=== PATIENT | male | born 1995 | race Caucasian/White ===

== ENCOUNTER 2017-09-03 13:19 | Emergency (ER) | payer BC ==
[~2017-09-03] VITALS: Ht 172.7 cm; Wt 74.6 kg
[2017-09-03 13:21] VITALS: TEMP 36.7; Ht 172.7 cm; Wt 74.6 kg
[2017-09-03] MEDS ORDERED: GELATIN SPONGE 12-7MM EXT ONE (13:45)
[2017-09-03] MEDS ORDERED: GELATIN SPONGE 12-7MM ONE (13:47)
[2017-09-03 14:13] VITALS: BP 132/71; PULSE 80; O2SAT 100
--- NOTE | 2017-09-03 14:33 | EMERGENCY ROOM VISIT NOTE ---
History First contact with patient: 13:35 Chief Complaint: LACERATION/CUT (SUT/DERMABOND) Stated Complaint: RIGHT HAND, TIP OF FINGER CUTD OFF Nursing Triage Summary: Pt was cutting meat and cut the tip of his middle finger of the right hand off. Wound is bleeding. Wound cleaned and pressure bandage applied. History of Present Illness The patient is a 21 year old male who presents to the Emergency Room with complaints of a right third fingertip avulsion. The patient was cutting oranges with a mandolin slicer approximately one hour ago when this happened. The patient does report a moderate amount of bleeding, but was able to stop the bleeding with direct pressure. The patient is [id number]. Tetanus immunization is up-to-date. The patient rates his discomfort a 6 out of 10. Review of Systems 6 system review was performed and was negative except for pertinent positives and negatives as indicated in history of present illness Past Medical/Surgical History Medical Problems: (1) No significant past medical history Surgical Problems: (1) No history of previous surgery (2) Status post myringotomy with insertion of tube Family History Unremarkable Social History Smoking Status: Never Smoker Alcohol Use: occasionally Marital Status: single Occupation Status: employed Current/Historical Medications No Active Prescriptions or Reported Meds Physical Exam Vital Signs Date Time Temp Pulse Resp B/P (MAP) Pulse Ox O2 Delivery O2 Flow Rate FiO2 09/03/17 14:13 80 18 132/71 100 09/03/17 13:21 36.7 95 18 144/96 98 Room Air Physical Exam CONSTITUTIONAL: Healthy and well nourished. Alert and oriented X 3 with positive affect. Patient appears in mild discomfort from pain. HEENT: Normocephalic, atraumatic. Pupils equal, round and reactive. NECK: Full active range of motion without discomfort. MUSCULOSKELETAL: Examination of the right third fingertip shows a clean avulsion laceration of the tip. It does not involve the nail. Diameter is approximately 1 cm. No active bleeding noted. The bony tuft is not exposed. INTEGUMENTARY: No rash or other significant dermatologic conditions noted. NEUROLOGIC: No focal neurologic deficits noted. Medical Decision & Procedures ED Course Patient history and physical exam were performed. Nurse's notes were reviewed. Vital signs were reviewed and were normal. A Gelfoam pressure dressing was applied. The patient was provided additional verbal and written wound care instructions. If the fingertip starts to recede, or if he has any significant wound concerns, he was instructed to follow-up with orthopedics for further reevaluation. Ibuprofen or Tylenol as needed for pain. The patient was happy with plan of care, voiced understanding of all discharge instructions, and denied any significant discomfort at the conclusion of my exam. Medical Decision Medication Reconcilliation Current Medication List: was personally reviewed by me Blood Pressure Screening Patient's blood pressure: Normal blood pressure Impression Primary Impression: Laceration of right middle finger w/o foreign body w/o damage ... Departure Information Dispostion Home / Self-Care Prescriptions No Active Prescriptions or Reported Meds Forms HOME CARE DOCUMENTATION FORM, IMPORTANT VISIT INFORMATION Patient Instructions My [facility] Additional Instructions Keep dressing in place for 48 hrs, then remove. Soak foam in water until it falls off easily, then clean wound daily, cover with an antibiotic ointment and keep covered until it heals. Return for any signs of infection (increasing redness, swelling, drainage). Ice and elevate for swelling and pain. Ibuprofen 800 mg and/or Tylenol 1000 mg every 8 hours. You may also alternate these medications for more effective pain relief: Ibuprofen --4 HRS--> Tylenol --4 HRS--> ibuprofen --4 HRS--> Tylenol .... Problem Qualifiers Primary Impression: Laceration of right middle finger w/o foreign body w/o damage ... Encounter type: initial encounter Qualified Codes: S61.212A - Laceration without foreign body of right middle finger without damage to nail, initial encounter
== END 2017-09-03 14:15 | disposition home or self-care (01) ==
LOC: C.EDB 13:21 → C.EDD 14:15
DX: S61.212A Laceration without foreign body of right middle finger without damage to nail, initial encounter (principal); W26.8XXA Contact with other sharp object(s), not elsewhere classified, initial encounter; Y92.89 Other specified places as the place of occurrence of the external cause

== ENCOUNTER 2017-12-05 01:39 | Emergency (ER) | payer BC, OTHER ==
[~2017-12-05] VITALS: Ht 172.7 cm; Wt 75.8 kg
[2017-12-05 01:44] VITALS: TEMP 36.5; Ht 172.7 cm; Wt 75.8 kg
--- NOTE | 2017-12-05 02:14 | EMERGENCY ROOM VISIT NOTE ---
History Report prepared by Madeline: Prem Polanco Under the Supervision of: Dr. Marifer Willoughby M.D. First contact with patient: 01:52 Chief Complaint: ELBOW PAIN/INJURY Stated Complaint: LEFT ELBOW HURTS History of Present Illness The patient is a 22 year old male who presents to the Emergency Room with complaints of pain and bleeding in his left elbow that began shortly prior to arrival after falling. The patient admits that "he was drinking a little this evening" when he slipped and fell. He fell directly onto a piece of broken glass with his left elbow and suffered a laceration. He did fall onto a "dirty fraternity house" basement floor, although the glass was broken earlier this evening. He did not lose consciousness from the fall, and he has no headache. His tetanus is up to date. Source of History: patient Onset: Shortly TITLE INVESTIGATOR Position: elbow (left) Quality: other (Fall/Laceration) Timing: other (Single falling episode) Associated Symptoms: No LOC, No headache Review of Systems See HPI for pertinent positives & negatives. A total of 10 systems reviewed and were otherwise negative. Past Medical & Surgical Medical Problems: (1) No significant past medical history Surgical Problems: (1) No history of previous surgery (2) Status post myringotomy with insertion of tube Family History Patient reports no known family medical history. Social History Smoking Status: Never Smoker Alcohol Use: occasionally Marital Status: single Occupation Status: employed Current/Historical Medications No Active Prescriptions or Reported Meds Allergies Coded Allergies: Penicillins (Verified Allergy, Unknown, HIVES, 12/05/17) Physical Exam Vital Signs Date Time Temp Pulse Resp B/P (MAP) Pulse Ox O2 Delivery O2 Flow Rate FiO2 12/05/17 03:05 75 18 155/78 99 Room Air 12/05/17 01:44 36.5 64 18 126/73 97 Room Air Physical Exam Vital signs reviewed. General: Well-appearing young male, in no significant distress. HEENT: No scleral icterus, PERRLA, neck supple. Atraumatic. Cardiovascular: Regular rate and rhythm, no extra sounds. Pulmonary: Clear to auscultation bilaterally, normal work of breathing. Abdomen: Soft, nontender, nondistended, positive bowel sounds. Musculoskeletal: Atraumatic, no peripheral edema. Nontender C-spine and T-spine , no step-off or deformity. There is a 2 cm laceration to the left distal humerus, just above the elbow. No joint involvement. Neurologic: Patient awake alert and oriented x 3, full strength in all 4 extremities. Cranial nerves 2 through 12 grossly intact. Skin: Warm, dry, no rash Medical Decision & Procedures ER Provider Diagnostic Interpretation: X-ray results as stated below per interpretation by me: Chest X-ray: No focal infiltrate, no pneumothorax, no rib fracture. Elbow X-ray: No fracture, foreign body, or dislocation. ED Course 0159: Past medical records reviewed. The patient was evaluated in room B2. A complete history and physical examination was performed. 0215: Ordered Lidocaine 20 mL INFIL 0319: Upon reevaluation, the patient was resting comfortably. I discussed findings with him. He verbalized agreement of the treatment plan. The patient was discharged home. Medical Decision Differential diagnosis: Etiologies such as fracture, dislocation, intra-abdominal, pneumothorax, intrathoracic , intracranial, neurologic, as well as other traumatic pathologies were entertained. neurologic,as well as others were deemed relatively unlikely. This patient was evaluated and appeared to be in no significant distress. Physical examination is significant only for a 2 cm laceration to the distal left forearm. X-ray was obtained and reveals no evidence of foreign body. Chest x-ray was performed due to the back pain and fall. The study is negative. Patient's tetanus status is up-to-date. He was advised of the findings. Wound was prepped and closed by Yessica Boland PA-C. Please see her notes for final details. Patient was given detailed wound care instructions and will return to the ER for worsening of symptoms or any medical concerns. Medication Reconcilliation Current Medication List: was personally reviewed by me Blood Pressure Screening Patient's blood pressure: Elevated blood pressure Blood pressure disposition: Elevated BP felt to be situational Impression Primary Impression: Laceration of upper arm Scribe Attestation The scribe's documentation has been prepared under my direction and personally reviewed by me in its entirety. I confirm that the note above accurately reflects all work, treatment, procedures, and medical decision making performed by me. Departure Information Dispostion Home / Self-Care Prescriptions No Active Prescriptions or Reported Meds Referrals No Doctor, Assigned (PCP) Forms HOME CARE DOCUMENTATION FORM, IMPORTANT VISIT INFORMATION Patient Instructions My [facility] Additional Instructions Please watch for signs of infection. If laceration becomes red, swollen or drains, please seek medical attention. Laceration care: Keep wound clean and dry. Do not allow any crusting or dried blood to accumulate on sutures. If this occurs, use a 1:1 solution of hydrogen peroxide/ water on a Q-tip to clean the wound. Use an antibiotic ointment for 3-4 days, then let wound dry. Suture removal in 10-12 days. Return sooner for any signs of infection (increasing redness, swelling, drainage). Ice and elevate for swelling and pain. Ibuprofen 600 mg and Tylenol 650 mg every 6 hrs for pain. Keep covered when in sun until sutures removed then SPF 50 or higher for one year. Vitamin E oil if desired two weeks after suture removal for reduction of scar. Return to the ED for worsening of symptoms or any medical concerns.
[2017-12-05] MEDS ORDERED: XYLOCAINE 1%/SOD BICARB 20 ML VIAL INFIL ONE (02:15)
--- NOTE | 2017-12-05 02:42 | EMERGENCY ROOM VISIT NOTE ---
ED Visit Note Location: right upper arm above the elbow Total length: 2cm Complexity: simple Verbal consent was obtained after the risks and benefits were explained, including but not limited to bleeding, scarring, infection, pain, and bone/joint /nerve damage. At this time, the risks of the procedure are less than the risks of NOT performing the procedure. A time out was taken and the correct patient and site identified. The skin was prepped with betadine. The target area was anesthetized with 2 ml of 1% lidocaine without epinephrine. Copious irrigation was performed using NSS. The skin was re-prepped with betadine and a sterile field set. The wound was explored for foreign bodies and none found. Examination revealed no injury to deep structures such as tendons, bone, or significant blood vessels. Debridement was not performed. The wound edges were approximated using 4, 4-0 simple interrupted nylon sutures. Hemostasis and excellent approximation was achieved. Antibacterial ointment and a sterile dressing applied. Detailed wound care instructions and signs and symptoms of infection reviewed with the pt. No complications and the patient tolerated the procedure well. Current/Historical Medications No Active Prescriptions or Reported Meds Allergies Coded Allergies: Penicillins (Verified Allergy, Unknown, HIVES, 12/05/17) Vital Signs Date Time Temp Pulse Resp B/P (MAP) Pulse Ox O2 Delivery O2 Flow Rate FiO2 12/05/17 01:44 36.5 64 18 126/73 97 Room Air Departure Information Prescriptions No Active Prescriptions or Reported Meds Referrals No Doctor, Assigned Patient Instructions My [facility]
[2017-12-05 03:05] VITALS: BP 155/78; PULSE 75; O2SAT 99
--- NOTE | 2017-12-05 07:14 | DIAGNOSTIC IMAGING REPORT ---
CHEST ONE VIEW PORTABLE CLINICAL HISTORY: fall CHEST PAIN COMPARISON STUDY: No previous studies for comparison. FINDINGS: The cardiac and mediastinal contours are normal. There is no evidence of focal pulmonary consolidation. There is no evidence of failure. No pleural effusions are visualized.[ No pneumothorax is visualized. IMPRESSION: No active disease in the chest. Electronically signed by: Connor Smith M.D. 12/05/2017 7:12 AM Dictated Date/Time: 12/05/2017 7:12 AM
--- NOTE | 2017-12-05 07:15 | DIAGNOSTIC IMAGING REPORT ---
L ELBOW MIN 3 VIEWS ROUTINE CLINICAL HISTORY: Left elbow pain status post trauma COMPARISON: None. DISCUSSION: The fat pads are not displaced. No fractures or dislocations are visualized. IMPRESSION: No fractures or dislocations identified. Electronically signed by: Connor Smith M.D. 12/05/2017 7:13 AM Dictated Date/Time: 12/05/2017 7:13 AM
== END 2017-12-05 03:28 | disposition home or self-care (01) ==
LOC: C.EDB 01:40
DX: S41.112A Laceration without foreign body of left upper arm, initial encounter (principal); W45.8XXA Other foreign body or object entering through skin, initial encounter; Y92.89 Other specified places as the place of occurrence of the external cause; Z88.0 Allergy status to penicillin

== ENCOUNTER 2017-12-05 19:28 | Emergency (ER) | payer OTHER ==
--- NOTE | 2017-12-06 00:29 | EMERGENCY ROOM VISIT NOTE ---
History First contact with patient: 23:44 Chief Complaint: HEADACHE Stated Complaint: CONCUSSION,DIZZY,HEADACHE History of Present Illness The patient is a 22 year old male who presents to the Emergency Room with complaints of headache symptoms worsening over the past several hours. The patient was seen and evaluated last night in this department following a fall. He states that at his initial presentation he was not having any discomfort in his head, and ultimately had a laceration repaired over his left elbow. This is evidently doing well and not currently bothering him. The patient denied head injury symptoms last night, but states that he is now having some discomfort. He is not taking anything [id number] for his symptoms. He does not take blood thinners. He rates his discomfort a 4/10 and is concerned about a concussion. Please note the patient was seen in part during an episode of [facility] downtime. Additional information may be scanned into the chart regarding this encounter. Review of Systems More than 10 systems were reviewed and otherwise negative with the exception of history of present illness. Past Medical/Surgical History Medical Problems: (1) No significant past medical history Surgical Problems: (1) No history of previous surgery (2) Status post myringotomy with insertion of tube Family History Patient reports no known family medical history. Social History Smoking Status: Never Smoker Alcohol Use: occasionally Marital Status: single Occupation Status: employed Current/Historical Medications No Active Prescriptions or Reported Meds Physical Exam Physical Exam VITALS: Vitals are noted on the nurse's note and reviewed by myself. Vital signs stable. GENERAL: Well-developed, well-nourished, white male, who is in no acute distress and resting comfortably. Patient is cooperative with the examination. GCS 15. HEAD: Superficial abrasion appreciated over the mid right side forehead. No castillo sign or raccoon eyes. EARS: External ear normal. External auditory canals clear, tympanic membranes pearly gonzalez without erythema or effusion bilaterally. EYES: Pupils equal round and reactive to light and accommodation. Conjunctivae without injection, sclerae without icterus. Extraocular movements intact. NOSE: Patent, turbinates without inflammation or discharge. MOUTH: Mucous membranes moist. Tonsils are not enlarged. Pharynx without erythema, blood, or exudate. Uvula midline. Airway patent. NECK: Supple without nuchal rigidity. No lymphadenopathy. No thyromegaly. Cervical spine is nontender. HEART: Regular rate and rhythm without murmurs gallops or rubs. LUNGS: Clear to auscultation bilaterally without wheezes, rales or rhonchi. No retractions or accessory muscle use. Medical Decision & Procedures ED Course Physical exam and history were performed. Nursing notes, EMR, and Medication List were personally reviewed. Patient appears to have injured his head last evening, and is now complaining of some dizziness. The patient's neurological exam is unremarkable and he otherwise appears well. I discussed options of care, and he did elect for a CT scan. CT scan was performed, and reviewed by radiology during downtime. A verbal report was called to me indicating no acute process with official report pending at the time of this dictation. Overall the patient appears well for discharge home. I suspect his symptoms are related to the head injury and possible mild concussion. He was given a note for school for tomorrow. He is to follow with his primary care physician for further care management. He is otherwise invited back to the ER with any new, worsening, or concerning symptoms. The chart was completed utilizing [employer] Speech Voice Recognition Software. Grammatical errors, random word insertions, pronoun errors, and incomplete sentences are an occasional consequence of this system due to software limitations, ambient noise, and hardware issues. Any formal questions or concerns about the content, text, or information contained within the body of this dictation should be directly addressed to the provider for clarification. . Medical Decision Differential diagnosis: Etiologies such as concussion, contusion, fracture, subdural hematoma, epidural hematoma, intraparenchymal hemorrhage, as well as other traumatic pathologies were entertained. Impression Primary Impression: Closed head injury Departure Information Dispostion Home / Self-Care Condition GOOD Prescriptions No Active Prescriptions or Reported Meds Referrals Rigoberto Glasgow M.D. (PCP) Forms HOME CARE DOCUMENTATION FORM, IMPORTANT VISIT INFORMATION Patient Instructions My [facility]
--- NOTE | 2017-12-06 07:40 | DIAGNOSTIC IMAGING REPORT ---
HEAD WITHOUT CONTRAST (CT) CT DOSE: HISTORY: Trauma. Mental status change. TRAUMA LAST NIGHT TECHNIQUE: Multiaxial CT images of the head were performed without the use of intravenous contrast. A dose lowering technique was utilized adhering to the principles of ALARA. Comparison: None. Findings: Minimal mucosal thickening of the sinuses. The calvarium and skull base are intact. The ventricles and sulci are within normal limits. There is no mass, hematoma, midline shift, or acute infarct. Impression: No acute intracranial abnormality. The above report was generated using voice recognition software. It may contain grammatical, syntax or spelling errors. Electronically signed by: Manjeet Rodrigez M.D. 12/06/2017 7:38 AM Dictated Date/Time: 12/06/2017 7:37 AM
== END 2017-12-05 21:30 | disposition home or self-care (01) ==
LOC: C.EDD 19:28
DX: S00.81XA Abrasion of other part of head, initial encounter (principal); W19.XXXD Unspecified fall, subsequent encounter; R40.2412 Glasgow coma scale score 13-15, at arrival to emergency department

== ENCOUNTER 2017-12-14 17:06 | Emergency (ER) | payer OTHER ==
[~2017-12-14] VITALS: Ht 172.7 cm; Wt 75.8 kg
[2017-12-14 17:27] VITALS: BP 144/90; PULSE 69; TEMP 36.7; O2SAT 97; Ht 172.7 cm; Wt 75.8 kg
--- NOTE | 2017-12-14 17:47 | EMERGENCY ROOM VISIT NOTE ---
ED Visit Note First contact with patient: 17:40 CHIEF COMPLAINT: Suture removal This patient returns to the ED today for removal of sutures that were placed 9 days ago. There has been no swelling, redness, or drainage from the wound. The patient feels like the laceration is healing well. He notes some bruising overlying the elbow and minimal swelling. REVIEW OF SYSTEMS: Head: No headache, injury or neck pain. Skin: No rash, new lesions, or masses. General: No fever or chills, fatigue, loss of appetite , or significant recent weight gain or loss. PMH: The patient is healthy; there is no significant medical or surgical history. SOCIAL HISTORY: Patient lives at home. PHYSICAL EXAM: Vital Signs: Reviewed Nurse's notes. There is a sutured wound on the left elbow with no signs of infection. There is no erythema, swelling, or tenderness. EMERGENCY DEPARTMENT COURSE: The for sutures were removed without any difficulty and there was no separation of the wound edges. I informed her that the bruising as expected and it is showing signs of healing. There is no pus or drainage upon removal of the sutures. No separation of the wound edges. I suspect this is all secondary to the injury. He is to return with worsening. He was thoroughly educated upon these worrisome symptoms which to return. He is also to follow-up with [facility] for evaluation of the bruising if it persists. I did review previous x-rays and there is no fracture. On exam there is minimal to no pain. Current/Historical Medications No Active Prescriptions or Reported Meds Allergies Coded Allergies: Penicillins (Verified Allergy, Unknown, HIVES, 12/05/17) Vital Signs Date Time Temp Pulse Resp B/P (MAP) Pulse Ox O2 Delivery O2 Flow Rate FiO2 12/14/17 17:27 36.7 69 16 144/90 97 Room Air Departure Information Impression Primary Impression: Encounter for removal of sutures Dispostion Home / Self-Care Condition GOOD Prescriptions No Active Prescriptions or Reported Meds Referrals Rigoberto Glasgow M.D. (PCP) Patient Instructions My [facility] Additional Instructions DISCHARGE INSTRUCTIONS AND TREATMENT: Wash any remaining crusts off of the wound today and resume your normal activities. As we discussed however I would recommend refraining from heavy weight lifting for 1 week. This is to allow the skin to fully heal. In addition, I do recommend watching the wound with the swelling. This is likely all just from the incident and the bruising has to subside however if you start getting fever, chills or redness please return. [facility] the bruising is persistent for perhaps repeat x-rays.
== END 2017-12-14 17:57 | disposition home or self-care (01) ==
LOC: C.EDB 17:08 → C.EDD 17:57
DX: S51.019D Laceration without foreign body of unspecified elbow, subsequent encounter (principal); X58.XXXD Exposure to other specified factors, subsequent encounter